=== PATIENT | female | born 1975 | race Caucasian/White ===

== ENCOUNTER 2019-11-07 17:32 | Emergency (ER) | payer BC ==
[~2019-11-07] VITALS: Ht 167.6 cm; Wt 62.4 kg
[2019-11-07 17:44] VITALS: BP 167/92
--- NOTE | 2019-11-07 18:11 | PHYS DOC ---
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 Feels as if her right jaw isn't aligned correctly. Did not lose consciousness, on no AC. States her tongue was bleeding for awhile, boyfriend made her come to the ed to be assessed. Her dogs vaccines are UTD. Pts' tetanus is UTD. ROS: No associated headache, midline neck pain, chest pain, dypsnea, cough, sore throat, speech changes, n/v/d/c, neuro deficits, excessive bleeding or rash. (MICAH CR DO) Review of Systems: Review of Systems: Constitutional: Denies fever or chills Eyes: Denies change in visual acuity HENT: Denies nasal congestion or sore throat Respiratory: Denies cough or shortness of breath Cardiovascular: Denies chest pain or edema GI: Denies abdominal pain, nausea, vomiting, bloody stools or diarrhea : Denies dysuria Musculoskeletal: Denies back pain or joint pain Integument: Denies rash Neurologic: Denies headache, focal weakness or sensory changes Endocrine: Denies polyuria or polydipsia Lymphatic: Denies swollen glands Psychiatric: Denies depression or anxiety (MICAH CR DO) Allergies: Allergies: Allergies Coded Allergies Type Severity Reaction Last Updated Verified No Known Drug Allergies 11/07/19 No (MICAH CR DO) Physical Exam: PE: Constitutional: Well developed, well nourished, no acute distress, non-toxic appearance. [] HENT: Normocephalic, atraumatic, bilateral external ears normal, oropharynx moist, no oral exudates, nose normal. NEXUS criteria negative, #27 - no avulsion or pulp exposures, two small puncture wounds left lateral tongue-no active bleeding, normal jaw strength w/tongue depressor test bl, pain over R TMJ joint Eyes: PERRLA, EOMI, conjunctiva normal, no discharge. [] Neck: Normal range of motion, no tenderness, supple, no stridor. [] Cardiovascular:Heart rate regular rhythm, no murmur [] Lungs & Thorax: Bilateral breath sounds clear to auscultation [] Abdomen: Bowel sounds normal, soft, no tenderness, no masses, no pulsatile masses. [] Skin: Warm, dry, no erythema, no rash. [] Back: No tenderness, no CVA tenderness. [] Extremities: No tenderness, no cyanosis, no clubbing, ROM intact, no edema. [] Neurologic: Alert and oriented X 3, normal motor function, normal sensory function, no focal deficits noted. [] Psychologic: Affect normal, judgement normal, mood normal. [] [facility] Current Patient Data: Labs: Laboratory Tests Test 11/07/19 17:57 POC Urine HCG, Qualitative hcg negative (Negative) Vital Signs: Vital Signs Date Time Temp Pulse Resp B/P (MAP) Pulse Ox O2 Delivery O2 Flow Rate FiO2 11/07/19 17:44 98.1 108 16 167/92 (117) 100 Room Air [facility] EKG: EKG: [] [facility] Radiology/Procedures: Radiology/Procedures: [] Impressions: Impression: Right jaw pain and tongue lacerations (small w/hemostasis- no mucosal repair needed), CT maxillofacial pending. NEXUS negative. Due to shift change pt was signed out to Dr. Bashir. ([facility]) Impressions: CT scan of the facial bones without contrast 11/05/2019 CLINICAL HISTORY: Right jaw pain. TECHNIQUE: Unenhanced, contiguous, 0.625 mm axial sections were obtained through the facial bones and orbits. 3 mm reconstructed sagittal, axial and coronal images were obtained. One or more of the following individualized dose reduction techniques were utilized for this study: 1. Automated exposure control. 2. Adjustment of the mA and/or kV according to patient size. 3. Use of iterative reconstruction technique. FINDINGS: No facial bone fracture is seen. Both orbits are intact. The paranasal sinuses are essentially clear. No air-fluid level is noted. The right lower third molar is partially impacted. IMPRESSION: No facial bone fracture is seen. Electronically signed by: Mathieu Bo MD (11/07/2019 6:28 PM) [id number] DICTATED AND SIGNED BY: MATHIEU BO MD DATE: 11/07/19 1828 CC: PCP,BLAKE; MICAH CR DO ~ (PACO RUIZ DO) Course & Med Decision Making: Course & Med Decision Making Pertinent Labs and Imaging studies reviewed. (See chart for details) [] (MICAH CR DO) Course & Med Decision Making The patient CT is negative for acute findings. She has no fractures. I will discharge her with a short course of [place] 5/325 for pain. She is stable for discharge at this time. (PACO RUIZ DO) Dragon Disclaimer: Dragon Disclaimer: This electronic medical record was generated, in whole or in part, using a voice recognition dictation system. (MICAH CR DO) Departure Departure: Impression: Primary Impression: Jaw pain Disposition: HOME, SELF-CARE Condition: STABLE Referrals: PCP,BLAKE (PCP) Patient Instructions: Contusion, [id number] Scripts Hydrocodone Bit/Acetaminophen (NORCO 5-325 TABLET) 1 Each Tablet 1 TAB PO PRN Q6HRS PRN for PAIN, #10 TAB 0 Refills Prov: PACO RUIZ DO 11/07/19 MICAH CR DO November 07, 2019 18:11 PACO RUIZ DO November 07, 2019 18:55
--- NOTE | 2019-11-07 18:31 | RAD ---
CT scan of the facial bones without contrast 11/05/2019 CLINICAL HISTORY: Right jaw pain. TECHNIQUE: Unenhanced, contiguous, 0.625 mm axial sections were obtained through the facial bones and orbits. 3 mm reconstructed sagittal, axial and coronal images were obtained. One or more of the following individualized dose reduction techniques were utilized for this study: 1. Automated exposure control. 2. Adjustment of the mA and/or kV according to patient size. 3. Use of iterative reconstruction technique. FINDINGS: No facial bone fracture is seen. Both orbits are intact. The paranasal sinuses are essentially clear. No air-fluid level is noted. The right lower third molar is partially impacted. IMPRESSION: No facial bone fracture is seen. Electronically signed by: Mathieu Bo MD (11/07/2019 6:28 PM) [id number]
[2019-11-07] MEDS ORDERED: HYDR-3165 PO (18:54)
== END 2019-11-07 19:06 | disposition home or self-care (01) ==
LOC: ER 17:32
DX: R68.84 Jaw pain (principal); G89.29 Other chronic pain
CPT/HCPCS: 70486; 81025; 99284